=== PATIENT | female | born 1975 | race Caucasian/White ===

== ENCOUNTER 2025-03-13 14:12 | Emergency (ER) | payer OTHER, SELFPAY ==
[2025-03-13] VITALS (33 sets, daily range): BP systolic 133–176; BP diastolic 51–89; PULSE 58–86; RESP 20; TEMP 37; O2SAT 86–98
--- NOTE | 2025-03-13 14:04 | W.ED.GENAD ---
Discharge Plan Discharge Details Chief Complaint: Fall/Non TraumaCriteria Clinical Impression: Closed intertrochanteric fracture of right femur Primary Care Provider: Monica,Local ED Provider: Abel Smith [facility] General Date/Time Provider Initiated Documentation: 03/13/25 14:17. HPI Narrative: MDM Primary survey intact. Reassuring shock index. On secondary survey patient has a shortened and externally rotated right hip. Given direct hit strike my suspicion is higher for fracture versus dislocation so we will obtain plain films and reassess. Patient has warm well-perfused right foot so I am no concerned for critical limb ischemia so I do not feel that she requires an CT angiogram of her right lower extremity. She did not strike her head and she has a GCS of 15 so did not feel that she requires a CT scan of her head. She reportedly had a fingerstick blood glucose of 550 with paramedics. Will obtain a venous blood gas and urinalysis to assess for DKA. Patient does have markedly elevated BMI and reportedly has not seen a doctor since prior to [facility]. She had no preceding chest pain to suggest ACS however she has a hip fracture will obtain an ECG. No present proportion to suggest necrotizing soft tissue infection. Patient does have some petechiae to her left inguinal crease. She reports that these are chronic and she has sought care for these in the past. She is having fevers nor nuchal rigidity to suggest meningitis. Will obtain a CBC to screen for thrombocytopenia. Patient is from [place]. Clear lungs with equal breath sounds bilaterally so my suspicion is low for pneumothorax. Will treat pain with morphine and provide 1 L of IV fluids. 3 PM Venous blood gas lacks acidemia and hypercarbia. Patient does have mildly decreased CO2. 3:52 PM Negative hCG. Basic metabolic panel with mild anion gap but normal bicarbonate??not consistent with DKA. Persistent hyperglycemia. Will provide patient with a 1 L IV fluid bolus. CBC showing thrombocytosis but no anemia nor thrombocytopenia. I was in touch with Dr. Nation. He felt that the patient would benefit from tertiary care given her complex proximal femur fracture and subtrochanteric fracture with a large soft tissue envelope. I reached out to [facility] ortho and had images pushed. I updated the patient, her daughter, and her brother. I ordered a Santoyo catheter. Will keep patient NPO. 4:40 PM I signed patient out to Dr. Baldwin pending orthopedic transfer request to [facility]. Given the patient lives in [place] if there is not capacity at [facility] and may not be unreasonable to transfer patient to [facility] though this is nearly a 2-hour 45-minute ride. If [facility] is not available I anticipate a follow-up conversation with Dr. Nation would be beneficial but will defer this decision to Dr. Baldwin following his conversation with [facility] and reassessment of the patient. HPI This is a female with a history of gestational diabetes presenting with right hip pain following a fall. The patient experienced a mechanical slip in a rotating cylinder, resulting in a fall just prior to arrival. Upon impact with the floor, she heard a popping sound from her right hip and was unable to bear weight on it. The pain intensity is reported as 5 out of 10 when stationary and increases to 10 out of 10 with movement. She reports no head injury or loss of consciousness and has been alert and oriented throughout, with a Barbara Coma Scale score of 15. She also reports no respiratory issues or head trauma. Prior to the incident, she was in good health. She experienced initial nausea and vomiting but is now able to move her arms and left leg without difficulty. Her blood glucose level was recorded at 550. She had gestational diabetes years ago but has not followed up with any primary care since then. Exam General: Uncomfortable-appearing in no acute distress speaking in complete sentences. Head: Normocephalic, atraumatic. Eye: Extraocular eye movements intact. No conjunctival injection. No scleral icterus. Ear, nose, mouth, throat: Grossly normal inspection. Normal voice, handling secretions normally. Neck: Trachea midline. No midline cervical spinal tenderness. Cardiovascular: Well-perfused distal extremities. Regular rate and rhythm Respiratory: Nonlabored respiration. Clear lungs bilaterally. Back: No midline thoracic nor lumbar spinal tenderness. Gastrointestinal: Nondistended abdomen. Soft. Nontender. Musculoskeletal: Right lower extremity shortened and externally rotated. Patient has tenderness on her right proximal femur. No ecchymoses. No lacerations. No pain out of proportion. No erythema no fluctuance. Right foot warm well-perfused with intact PT and DP pulses. Left lower extremity atraumatic nontender. In the inguinal crease patient has dark nonblanching petechiae. No erythema. No fluctuance. Bilateral upper extremities nontender full range of motion. Skin: Normal for age and race, grossly normal temperature and turgor. No acute rash. Neurologic: Alert and appropriate, no apparent acute deficits. GCS 15. Psychiatric: Mood and manner are appropriate. Grooming and personal hygiene are appropriate. PFSH All Active Problems (Updated 03/13/25 @ 15:55 by Abel Smith MD) Closed intertrochanteric fracture of right femur (Acute) Subtrochanteric fracture of right femur (Acute 03/13/25) Social History Smoking risk assessment performed?: No
[2025-03-13] MEDS: Normal Saline 1,000 ML 1000 ML IV (14:39)
[2025-03-13] MEDS: MORPHine 4 MG/ML SYR IVP ×2 (14:40→16:00)
[2025-03-13 14:54] LABS: BE (Venous) -3 mmol/L (-2-3); HCO3 (Venous) 23 mmol/L (23-28); O2 Sat (Venous) 58 %; TCO2 (Venous) 21 mmol/L (24-29); pCO2 (Venous) 43 mmHg (41-51); pO2 (Venous) 32 mmHg
[2025-03-13 14:55] LABS: Abs Immature Grans 0.16 10^3/uL (0.0-0.06); HCT 42.8 % (36.0-46.0); HGB 13.9 g/dL (11.2-15.7); Immature Grans % 1.5 %; MCH 26.1 pg (27.0-33.0); MCHC 32.5 % (32.0-36.0); MCV 81 fL (80-95); MPV 9.6 fL (8.0-11.0); Platelet Count 425 10^3/uL (130-400); RBC 5.32 10^6/uL (3.93-5.22); RDW 13.3 % (11.7-14.6); RDW-SD 38.2 fL; WBC 10.76 10^3/uL (4.4-10.8)
[2025-03-13 15:13] LABS: Anion Gap 12.1 mmol/L (3-11); BUN 17 mg/dL (7-18); CO2 23.9 mmol/L (21.0-32.0); Calcium 9.4 mg/dL (8.5-10.1); Chloride 99 mmol/L (98-107); Estimated GFR 106.62 (mL/min/1.73m2); Glucose 496 mg/dL (74-106); Potassium 3.8 mmol/L (3.5-5.1); Sodium 135 mmol/L (136-145)
[2025-03-13 15:27] LABS: HCG Qual (Serum) Negative
--- NOTE | 2025-03-13 15:30 | DI.RAD_ITS ---
Exam(s) XR CHEST 1V IN DI DEPT EXAM: XR CHEST 1V IN DI DEPT CLINICAL HISTORY: Fall TECHNIQUE: 2D digital imaging was performed. COMPARISON: No exams were available for comparison FINDINGS: LUNGS: Suboptimally inflated but clear. No pleural abnormality seen. HEART: Normal size. AORTA: Tortuous. BONES: Unremarkable for age. Soft tissues: Unremarkable. IMPRESSION: No acute findings. DATA REPOSITORY: RADIATION DOSE DELIVERED:
--- NOTE | 2025-03-13 15:30 | DI.RAD_ITS ---
Exam(s) XR PELVIS AP XR FEMUR RT EXAM: XR PELVIS AP CLINICAL HISTORY: Right hip pain. TECHNIQUE: 2D digital imaging was performed. Single AP view. COMPARISON: CR XR FEMUR RT from 03/13/2025 FINDINGS: BONES: There is a comminuted fracture of the intertrochanteric region of the right femur. It is not well profiled on the the hip or femur exam. No additional fractures are seen distally in the femur or in the pelvis. No bony destructive lesion is seen. JOINTS: No dislocation present. The hip and knee joints are unremarkable. SOFT TISSUE: Normal. IMPRESSION: Comminuted intertrochanteric fracture of the right femur. DATA REPOSITORY: RADIATION DOSE DELIVERED:
--- NOTE | 2025-03-13 15:30 | RT.EKG_ITS ---
APPROVED REPORT Exam: Resting ECG Reason for Exam: hip fx Patient Location: E HR:74 bpm ECG Measurements Heart Rate 74 AXIS RI 145 P 21 QRSd 88 QRS 5 QT 411 T -2 QTc 457 Conclusion Sinus rhythm...normal P axis, V-rate 60- 99 No Occlusion [place]
--- NOTE | 2025-03-13 15:38 | W.ORTHOCONSU ---
Assessment and Plan Assessment and plan (1) Subtrochanteric fracture of right femur: Status: Acute Assessment and plan: 50-year-old female with complex right proximal femur/subtrochanteric fracture Called to review case by ER doctor. Given the challenging nature of these fractures complicated by morbid obesity and extremely large hip soft tissue envelope, recommend transfer to tertiary care facility for definitive surgical management if possible. If not possible in a timely manner, I could possibly make arrangements to do surgery here. Might require obtaining larger femoral nailing jig to accommodate the patient's size. PFSH All Active Problems (Updated 03/13/25 @ 15:39 by Jostin Nation MD) Subtrochanteric fracture of right femur (Acute 03/13/25) Social History Smoking risk assessment performed?: No Results Last Vital Signs Temp 98.6 F 03/13/25 14:18 Pulse 68 03/13/25 14:18 Resp 20 03/13/25 14:18 BP 155/69 H 03/13/25 14:18 Pulse Ox 98 03/13/25 14:18 Labs 03/13/25 14:45 03/13/25 14:45 Labs: Laboratory Results - last 24 hr 03/13/25 14:45 WBC 10.76 RBC 5.32 H Hgb 13.9 Hct 42.8 MCV 81 MCH 26.1 L MCHC 32.5 RDW 13.3 Plt Count 425 H MPV 9.6 Immature Gran % 1.5 Neutrophils % 72.8 Lymphocytes % 18.2 Monocytes % 6.8 Eosinophils % 0.3 Basophils % 0.4 Nucleated RBC % 0.0 Absolute Neutrophils 7.84 H Absolute Lymphocytes 1.96 Absolute Monocytes 0.73 Absolute Eosinophils 0.03 Absolute Basophils 0.04 VBG pH 7.34 VBG pCO2 43 VBG pO2 32 VBG HCO3 23 VBG Total CO2 21 L VBG O2 Saturation 58 VBG Base Excess -3 L Sodium 135 L Potassium 3.8 Chloride 99 Carbon Dioxide 23.9 Anion Gap 12.1 H BUN 17 Creatinine 0.7 Est GFR (CKD-EPI 2020) 106.62 Glucose 496 H Calcium 9.4 Serum HCG, Qual Negative
[2025-03-13 16:20] LABS: Glucose >=1000 mg/dL (Negative)
[2025-03-13 16:29] LABS: C & S Indicated? No; RBC Negative HPF (0-2); WBC Negative HPF (0-5)
[2025-03-13] MEDS: HYDROmorphone 2 MG/ML SYR 1 MG IM (17:02)
[2025-03-13] MEDS: HYDROmorphone 2 MG/ML SYR 1 MG IVP ×3 (17:24→19:20)
[2025-03-13] MEDS: ACETAMINOPHEN 1,000 MG/100 ML BAG 400 MG IVPB (17:24)
[2025-03-13] MEDS: Ketorolac 30 MG/ML VIAL IVP (17:24)
--- NOTE | 2025-03-13 17:30 | NUR.NOTE ---
Michel Lee - [facility] - [phone] Nursing Note:
--- NOTE | 2025-03-13 17:38 | W.EDPROG ---
Date of service: 03/13/25 Time of Service: 17:38 Medical Decision Making ED course: 17: [address] Holland of [facility] trauma team, who agrees to accept patient as transfer for further management of her injuries. Discharge Plan Disposition Patient Disposition: Transfer-Acute Inpatient Care Condition: Good Discharge Details Clinical Impression: Closed intertrochanteric fracture of right femur Primary Care Provider: Monica,Local ED Provider: Ye Baldwin Home Meds and New Rx's Prescriptions: No Action No Known Home Meds Discharge Instructions Instructions: Femur Fracture Additional Instructions: Patient to be transferred to [facility] for further management of injuries under the care of Dr. Holland of the trauma service
[2025-03-13 18:04] LABS: Lab Add On Test DONE
[2025-03-13 18:22] LABS: Hemoglobin A1C 13.0 % (<5.7)
[2025-03-13] MEDS: Lidocaine 2% Jelly 6 ML SYR (19:21)
== END 2025-03-13 19:55 | disposition short-term general hospital (02) ==
PROVIDERS: Emergency Medicine; Student in an Organized Health Care Education/Training Program; Emergency Provider General Practice
DX: S72.21XA Displaced subtrochanteric fracture of right femur, initial encounter for closed fracture (principal); W19.XXXA Unspecified fall, initial encounter
CPT/HCPCS: 00123; 51702; 73552; 80048; 82805; 86850; 86900; 86901; 93005; 96361; 96365; 96372; 96375; 96376; 99285; 71045; 72170; 81003; 81015; 83036; 84703; 85025; 93010; J0131; J1171; J1885; J2270